=== PATIENT | male | born 1975 | race Caucasian/White ===

== ENCOUNTER 2016-10-05 11:51 | Inpatient (IN) | payer MEDICAID ==
[~2016-10-05] VITALS: Ht 177.8 cm; Wt 79.5 kg
[2016-10-05] MEDS ORDERED: IOVERSOL 350 MG/ML 150 ML VIAL ONE (12:04)
[2016-10-05] MEDS ORDERED: SODIUM CHLORIDE 0.9% 100 ML ONE (12:04)
[2016-10-05 12:15] LABS: BASOPHILS % (AUTO) 0.5 % (0.0-2.0); EOSINOPHILS % (AUTO) 0.4 % (1.0-6.0); HEMATOCRIT 48.8 % (41-53); HEMOGLOBIN 15.7 g/dL (13.5-17.5); LYMPHOCYTES # (AUTO) 2.5 K/uL (1.0-4.8); LYMPHOCYTES % (AUTO) 22.3 % (22.0-44.0); MEAN CORPUSCULAR HEMOGLOBIN 28.9 pg (26.0-34.0); MEAN CORPUSCULAR HGB CONC 32.2 G/dL (31.0-37.0); MEAN CORPUSCULAR VOLUME 90 fL (80-100); MONOCYTES # (AUTO) 0.6 K/uL (0.1-1.0); NEUTROPHILS # (AUTO) 8.1 K/uL (1.8-7.7); NEUTROPHILS % (AUTO) 71.8 % (40.0-70.0); PLATELET COUNT (AUTO) 273 K/uL (150-450); RED BLOOD CELL COUNT(AUTO) 5.42 MIL/uL (4.50-5.90); WHITE BLOOD COUNT (AUTO) 11.2 K/uL (4.5-11.0)
[2016-10-05 12:27] LABS: PROTHROMBIN TIME 10.7 SEC (9.4-11.6)
[2016-10-05 12:28] LABS: ANION GAP 12 mmol/L (8-16); CARBON DIOXIDE 26 mmol/L (22-29); CHLORIDE 101 mmol/L (98-107); CREATININE 0.96 mg/dL (0.60-1.30); GLOMERULAR FILTR. RATE CALC > 60 mL/min (>60); POTASSIUM 3.9 mmol/L (3.5-5.1); SODIUM SERUM 139 mmol/L (136-145); UREA NITROGEN, BLOOD 10 mg/dL (7-18)
[2016-10-05 12:53] LABS: ALANINE AMINOTRANSFERASE 34 U/L (12-78); ALBUMIN 4.3 g/dL (3.4-5.0); ASPARTATE AMINOTRANSFERASE 29 U/L (15-37); BILIRUBIN,TOTAL 0.5 mg/dL (0.1-1.0); CREATINE KINASE MB 3.2 ng/mL (0-5); CREATINE KINASE, TOTAL 448 U/L (39-308); TOTAL PROTEIN, SERUM 8.7 g/dL (6.4-8.2)
[2016-10-05] MEDS ORDERED: ASPIRIN 81 MG CHEWABLE TABLET PO ONE (13:45)
[2016-10-05] MEDS: OxyCODONE HCL/ACETAMINOPHEN 5-325 MG TABLET PO PRN (15:44)
[2016-10-05 16:30] VITALS: BP_SYST 136; BP_SYST 20; BP_DIAS 136; BP_DIAS 59
[2016-10-05 19:35] VITALS: BP 125/81
[2016-10-05 23:43] VITALS: BP 146/81
[2016-10-06] MEDS: OxyCODONE HCL/ACETAMINOPHEN 5-325 MG TABLET PO PRN (00:04)
[2016-10-06] MEDS: MORPHINE SULFATE 2 MG/ML SYRINGE IVP PRN ×4 (00:43→21:19)
[2016-10-06 04:40] VITALS: BP 122/84
[2016-10-06] MEDS ORDERED: MAGNESIUM HYDROXIDE SUSPENSION 30 ML UDCUP PO PRN (04:45)
[2016-10-06] MEDS ORDERED: ACETAMINOPHEN 325 MG TABLET PO PRN (04:45)
[2016-10-06] MEDS ORDERED: OxyCODONE HCL/ACETAMINOPHEN 5-325 MG TABLET PO PRN ×2 (04:45)
[2016-10-06] MEDS ORDERED: 0.9% SODIUM CHLORIDE 10 ML SYRINGE IVP PRN (04:45)
[2016-10-06] MEDS ORDERED: ONDANSETRON HCL 4 MG/2 ML VIAL IVP PRN (04:45)
[2016-10-06 07:17] VITALS: BP 124/90
[2016-10-06] MEDS: PANTOPRAZOLE SODIUM 40 MG/VIAL IVP SCH (08:12)
[2016-10-06] MEDS: DOCUSATE SODIUM 100 MG CAPSULE PO SCH ×2 (08:12→20:41)
[2016-10-06 11:29] VITALS: BP 118/76
[2016-10-06] MEDS ORDERED: LORazepam 2 MG/ML VIAL IVP ONE (11:30)
[2016-10-06] MEDS ORDERED: GADOBUTROL 1 MMOL/ML 10 ML VIAL IVP ONE (11:31)
[2016-10-06 11:47] LABS: CHOL/HDL RATIO 5.8 (4.2-7.3); THYROID STIMULATING HORMONE 1.18 uIU/mL (0.36-3.74)
[2016-10-06 12:01] LABS: VITAMIN B12 LEVEL 278 pg/mL (211-911)
[2016-10-06 15:30] VITALS: BP 122/74
[2016-10-06 19:18] VITALS: BP 135/82
[2016-10-06 23:57] VITALS: BP 115/73
[2016-10-07 04:53] VITALS: BP 113/77
[2016-10-07 06:40] LABS: BASOPHILS % (AUTO) 0.3 % (0.0-2.0); EOSINOPHILS % (AUTO) 1.4 % (1.0-6.0); HEMATOCRIT 48.1 % (41-53); HEMOGLOBIN 15.5 g/dL (13.5-17.5); LYMPHOCYTES # (AUTO) 2.5 K/uL (1.0-4.8); LYMPHOCYTES % (AUTO) 31.2 % (22.0-44.0); MEAN CORPUSCULAR HEMOGLOBIN 29.1 pg (26.0-34.0); MEAN CORPUSCULAR HGB CONC 32.2 G/dL (31.0-37.0); MEAN CORPUSCULAR VOLUME 90 fL (80-100); MONOCYTES # (AUTO) 0.5 K/uL (0.1-1.0); MONOCYTES % (AUTO) 6.6 % (2.0-9.0); NEUTROPHILS # (AUTO) 4.9 K/uL (1.8-7.7); NEUTROPHILS % (AUTO) 60.5 % (40.0-70.0); PLATELET COUNT (AUTO) 263 K/uL (150-450); RED BLOOD CELL COUNT(AUTO) 5.32 MIL/uL (4.50-5.90); WHITE BLOOD COUNT (AUTO) 8.1 K/uL (4.5-11.0)
[2016-10-07 06:51] LABS: ANION GAP 9 mmol/L (8-16); CALCIUM, TOTAL 8.5 mg/dL (8.8-10.5); CARBON DIOXIDE 28 mmol/L (22-29); CHLORIDE 102 mmol/L (98-107); CREATININE 0.89 mg/dL (0.60-1.30); GLOMERULAR FILTR. RATE CALC > 60 mL/min (>60); POTASSIUM 3.9 mmol/L (3.5-5.1); SODIUM SERUM 139 mmol/L (136-145); UREA NITROGEN, BLOOD 12 mg/dL (7-18)
[2016-10-07 07:19] VITALS: BP 131/91
[2016-10-07] MEDS: DOCUSATE SODIUM 100 MG CAPSULE PO SCH ×2 (07:50→20:03)
[2016-10-07] MEDS: PANTOPRAZOLE SODIUM 40 MG/VIAL IVP SCH (07:50)
[2016-10-07] MEDS: MORPHINE SULFATE 2 MG/ML SYRINGE IVP PRN ×4 (07:50→23:39)
[2016-10-07] MEDS: ASPIRIN 81 MG CHEWABLE TABLET PO SCH (07:50)
[2016-10-07 11:13] VITALS: BP 127/75
[2016-10-07 15:31] VITALS: BP 119/71
[2016-10-07 19:30] VITALS: BP 140/89
[2016-10-07 23:21] VITALS: BP 124/79
[2016-10-08 04:42] VITALS: BP 127/79
[2016-10-08 07:11] VITALS: BP 139/93
[2016-10-08] MEDS: MORPHINE SULFATE 2 MG/ML SYRINGE IVP PRN (07:38)
[2016-10-08] MEDS: PANTOPRAZOLE SODIUM 40 MG/VIAL IVP SCH (08:11)
[2016-10-08] MEDS: DOCUSATE SODIUM 100 MG CAPSULE PO SCH ×2 (08:11→20:27)
[2016-10-08] MEDS: ASPIRIN 81 MG CHEWABLE TABLET PO SCH (08:11)
[2016-10-08 11:35] VITALS: BP 131/82
[2016-10-08 15:16] VITALS: BP 115/76
[2016-10-08] MEDS: OxyCODONE HCL/ACETAMINOPHEN 5-325 MG TABLET PO PRN (16:54)
[2016-10-08] MEDS ORDERED: SUMAtriptan SUCCINATE 6 MG/0.5 ML VIAL SQ ONE (18:00)
[2016-10-08 19:42] VITALS: BP 140/85
[2016-10-08 23:43] VITALS: BP 124/89
[2016-10-09 00:30] VITALS: BP 115/81
[2016-10-09 04:30] VITALS: BP 116/77
[2016-10-09 06:59] VITALS: BP 121/72
[2016-10-09] MEDS: ASPIRIN 81 MG CHEWABLE TABLET PO SCH (08:07)
[2016-10-09] MEDS: DOCUSATE SODIUM 100 MG CAPSULE PO SCH (08:07)
[2016-10-09] MEDS: PANTOPRAZOLE SODIUM 40 MG/VIAL IVP SCH (08:07)
[2016-10-09] MEDS: OxyCODONE HCL/ACETAMINOPHEN 5-325 MG TABLET PO PRN (09:17)
[2016-10-09 11:21] VITALS: BP 119/80
[2016-10-09] MEDS ORDERED: ASPI81 PO (13:20)
[2016-10-09 15:00] VITALS: BP 128/94
[2016-10-09] MEDS ORDERED: OXYC-38 PO (15:19)
== END 2016-10-09 17:50 | disposition home or self-care (01) | DRG 58 ==
LOC: EMS 11:55 → 5S 15:40 → 6N 10-09 00:30
PROVIDERS: ADMIT Internal Medicine; ATTEND Internal Medicine
DX: G81.91 Hemiplegia, unspecified affecting right dominant side (principal); H53.47 Heteronymous bilateral field defects; R51 Headache; Z79.82 Long term (current) use of aspirin
CPT/HCPCS: 70496; 70553; 82607; 82746; 83036; 84443; 93005; 93306; 93880; 97116; 97162; 97530; 99291; A9585; C9113; J2060; J2270; J3030; J7050